=== PATIENT | male | born 1955 | race Two or more races ===

== ENCOUNTER 2018-09-26 09:03 | Outpatient (CLI) | payer OTHER ==
[~2018-09-26 09:03] MED LIST: LOTREL 5-10 MG1 CAP
== END 2018-09-26 09:05 | disposition home or self-care (01) ==
LOC: SONOGRAMA 09:03
DX: E04.2 Nontoxic multinodular goiter (principal)

== ENCOUNTER 2018-12-02 04:45 | Day surgery (SDC) | payer OTHER ==
[~2018-12-02 04:45] MED LIST changes: +SYNTHROID50 MCG PO
[2018-12-02] MEDS ORDERED: DUI500 PO (08:46)
[2018-12-02] MEDS ORDERED: TRAM1TAB98 PO (08:46)
== END 2018-12-02 15:00 | disposition home or self-care (01) ==
LOC: CIR.AMB 04:45
DX: M23.321 Other meniscus derangements, posterior horn of medial meniscus, right knee (principal); M17.11 Unilateral primary osteoarthritis, right knee; M65.861 Other synovitis and tenosynovitis, right lower leg